=== PATIENT | female | born 1990 | race Hispanic/Latino ===

== ENCOUNTER 2018-12-21 04:07 | Inpatient (IN) | payer MEDICAID | END 2018-12-22 12:40 | disposition home or self-care (01) | LOC: EDH 04:07 → LDH 04:08 → WSH 12:09 ==

== ENCOUNTER 2024-05-29 21:17 | Inpatient (IN) | payer MEDICAID ==
[~2024-05-29] VITALS: Ht 154.9 cm; Wt 105.2 kg
[~2024-05-29 21:17] MED LIST: PREN-66 PO
[2024-05-29 21:53] LABS: APPEARANCE,URINE CLEAR (CLEAR); BILIRUBIN,URINE NEGATIVE (NEGATIVE); COLOR,URINE LIGHT-YELLOW (YELLOW); GLUCOSE, URINE (UA) NEGATIVE (NEGATIVE); KETONES,URINE NEGATIVE (NEGATIVE); LEUKOCYTE ESTERASE ,URINE 250 Leu/uL (NEGATIVE); NITRATE,URINE NEGATIVE (NEGATIVE); OCCULT BLOOD,URINE NEGATIVE (NEGATIVE); PH,URINE 6.5 (5.0-8.0); PROTEIN,URINE NEGATIVE (NEGATIVE); UROBILINOGEN,URINE 0.2 mg/dL (0.2-1.0)
[2024-05-29 21:54] LABS: ADD UA MICROSCOPIC YES
[2024-05-29 21:56] LABS: BACTERIA,URINE RARE /HPF (None Seen); MUCUS,URINE RARE LPF (None Seen); SQUAMOUS EPITHELIAL CELL,UR RARE /HPF (0-2); WBC,URINE 26-50 /HPF (0-1)
[2024-05-29] MEDS ORDERED: PROMETHAZINE HCL 25 MG/ML 1ML AMPULE IM PRN (22:00)
[2024-05-29] MEDS ORDERED: NALoxone HCL 0.4 MG/1 ML ML IV PRN (22:00)
[2024-05-29] MEDS ORDERED: LACTATED RINGERS 500 ML 500 ML IV PRN (22:00)
[2024-05-29] MEDS ORDERED: ePHEDrine SULFate 50 MG/ML AMPULE IVP PRN (22:00)
[2024-05-29] MEDS: AMPICILLIN 2GM+NS 100ML 100 ML IV SCH (22:39)
[2024-05-29] MEDS: LACTATED RINGERS 1000ML 1,000 ML IV PRN (22:39)
[2024-05-29 23:03] LABS: HEMATOCRIT 36.4 % (36-48); MEAN CORPUSCULAR HEMOGLOBIN 27.2 pg (27.0-33.0); MEAN CORPUSCULAR HGB CONC 31.9 g/dL (32.0-36.0); MEAN CORPUSCULAR VOLUME 85.2 fL (79-99); RED BLOOD CELL COUNT(AUTO) 4.27 MIL/uL (4.00-5.50); RED CELL DISTRIBUTION WIDTH 14.5 % (11.0-15.5)
[2024-05-30 00:12] LABS: HIV 1&2 ANTIBODY Non-Reactive (Negative); HIV-1 p24 Antigen Non-Reactive (Negative)
[2024-05-30 00:15] LABS: RAPID PLASMA REAGIN NONREACTIVE (NONREACTIVE)
[2024-05-30] MEDS: AMPICILLIN 1GM+NS 50ML 50 ML IV SCH (02:37)
[2024-05-30] MEDS: OXYTOCIN-LR 30 UNITS/500ML 500 ML IV SCH ×2 (04:17→18:51)
[2024-05-30] MEDS: MEPERIDINE-PF 50 MG/ML SYG IVP PRN (11:59)
[2024-05-30] MEDS: PROMETHAZINE HCL 25 MG/ML 1ML AMPULE IM PRN (11:59)
[2024-05-30] MEDS: MISOPROSTOL 200 MCG TABLET ONE (18:51)
[2024-05-30] MEDS: LIDOCAINE HCL 1% 20 ML VIAL ONE (18:51)
[2024-05-30] MEDS ORDERED: MEASLES/MUMPS/RUBELLA VACCINE, LIVE 0.5 ML/VIAL SQ PRN (19:00)
[2024-05-30] MEDS ORDERED: acetaMINOPHEN WITH coDEINE 1 TAB TAB PO PRN (19:00)
[2024-05-30] MEDS ORDERED: DIPH,PERTUSS(ACELL),TET VAC/PF 0.5 ML VIAL IM PRN (19:00)
[2024-05-30] MEDS ORDERED: LANOLIN 30GM OINTMENT TP PRN (19:00)
[2024-05-30] MEDS ORDERED: OXYTOCIN-LR 30 UNITS/500ML 500 ML IV SCH (19:00)
[2024-05-30] MEDS ORDERED: MISOPROSTOL 100 MCG TABLET PO ONE (19:15)
[2024-05-30] MEDS: doCUSate SODIUM 100 MG CAP PO SCH (22:11)
[2024-05-30] MEDS: WITCH HAZEL 1 PAD TP PRN (22:12)
[2024-05-30] MEDS: BENZOCAINE/LANOLIN/ALOE VERA 60 ML AEROSOL TP PRN (22:12)
[2024-05-30 22:27] VITALS: RESP 18; TEMP 98
[2024-05-30 23:50] VITALS: BP 118/76; PULSE 81; RESP 20; TEMP 98.5
[2024-05-31] VITALS (9 sets, daily range): BP systolic 88–103; BP diastolic 48–68; PULSE 71–85; RESP 17–20; TEMP 98–98.5
[2024-05-31] MEDS: acetaMINOPHEN 325 MG TAB PO PRN (06:14)
[2024-05-31 07:30] LABS: HEMATOCRIT 32.2 % (36-48); MEAN CORPUSCULAR HEMOGLOBIN 26.8 pg (27.0-33.0); MEAN CORPUSCULAR VOLUME 83.9 fL (79-99); RED BLOOD CELL COUNT(AUTO) 3.84 MIL/uL (4.00-5.50); RED CELL DISTRIBUTION WIDTH 14.7 % (11.0-15.5); WHITE BLOOD COUNT (AUTO) 14.4 K/uL (4.8-10.8)
[2024-05-31] MEDS: IBUPROFEN 600 MG TABLET PO PRN (08:25)
[2024-06-01 02:55] VITALS: BP 131/81; PULSE 70; RESP 17; TEMP 98.2
[2024-06-01 07:20] VITALS: BP 90/64; PULSE 65; RESP 18; TEMP 97.9
[2024-06-01 11:20] VITALS: BP 118/73; PULSE 73; RESP 18; TEMP 97.9
[2024-06-01 15:10] VITALS: BP 99/58; PULSE 83; RESP 18; TEMP 97.7
== END 2024-06-01 18:08 | disposition home or self-care (01) | DRG 560 ==
LOC: LDH 21:17 → INTOOBSV 21:17 → OBSVTOIN 21:17 → WSH 05-30 20:45
PROVIDERS: ADMIT Obstetrics & Gynecology; ATTEND Obstetrics & Gynecology
PROC: 10E0XZZ Delivery of Products of Conception, External Approach (ICD-10-PCS; principal; 2024-05-30)
PROC: 0KQM0ZZ Repair Perineum Muscle, Open Approach (ICD-10-PCS; 2024-05-30)
PROC: 10907ZC Drainage of Amniotic Fluid, Therapeutic from Products of Conception, Via Natural or Artificial Opening (ICD-10-PCS; 2024-05-30)
PROC: 3E033VJ Introduction of Other Hormone into Peripheral Vein, Percutaneous Approach (ICD-10-PCS; 2024-05-30)
DX: O99.824 Streptococcus B carrier state complicating childbirth (principal); Z37.0 Single live birth; O70.1 Second degree perineal laceration during delivery; Z3A.39 39 weeks gestation of pregnancy
CPT/HCPCS: 36415; 81001; 85027; 86592; 86701; 86850; 86900; 86901; 87086; 87340; 87390; A4351; G0378; J0290; J2175; J2210; J2550